=== PATIENT | male | born 1970 | race African-American/Black ===

== ENCOUNTER 2024-01-16 22:21 | Emergency (ER) | payer SELFPAY ==
[2024-01-16 22:24] VITALS: PULSE 82
== END 2024-01-16 22:38 | disposition left against medical advice (07) ==
LOC: ER 22:21
DX: H92.09 Otalgia, unspecified ear (principal); Z53.21 Procedure and treatment not carried out due to patient leaving prior to being seen by health care provider

== ENCOUNTER 2024-12-04 18:23 | Emergency (ER) | payer SELFPAY ==
[~2024-12-04] VITALS: Ht 175.3 cm; Wt 75.0 kg
[2024-12-04 18:29] VITALS: TEMP 36.9; O2SAT 98
[2024-12-04] MEDS: BACITRACIN ZINC OINT UDPKT TOP ONE (20:28)
[2024-12-04] MEDS: TETANUS, DIPHTHERIA, PERTUSSIS VAC/PF 0.5ML (>10YR OLD) IM ONE (20:31)
[2024-12-04 20:41] VITALS: BP 145/100; PULSE 62; RESP 18; O2SAT 98
== END 2024-12-04 20:45 | disposition home or self-care (01) ==
LOC: ER 18:23
DX: T23.271A Burn of second degree of right wrist, initial encounter (principal); X08.8XXA Exposure to other specified smoke, fire and flames, initial encounter; Y93.89 Activity, other specified; Y92.89 Other specified places as the place of occurrence of the external cause; Y99.8 Other external cause status
CPT/HCPCS: 90715; 90471; 99283; Z7610